=== PATIENT | female | born 1985 | race Caucasian/White ===

== ENCOUNTER → 2023-07-13 08:46 | Outpatient (CLI) | payer OTHER, SELFPAY ==
[2023-07-13 10:01] LABS: Add Manual Diff / Slide Review NO; Basophils Absolute Auto 0 /uL (0-100); Basophils Percent Auto 0.5 % (0-2); Eosinophils Absolute Auto 200 /uL (0-450); Hematocrit 39.8 % (36-46); Hemoglobin 13.4 g/dL (12.0-16.0); Lymphocytes Absolute Auto 1600 /uL (1100-4500); Lymphocytes Percent Auto 18.3 % (25-40); Mean Corpuscular HGB Conc 33.8 % (30-36); Mean Corpuscular Hemoglobin 28.6 PG (26-34); Mean Corpuscular Volume 84.7 fL (80-100); Monocytes Absolute Auto 600 /uL (0-900); Monocytes Percent Auto 6.4 % (3-14); Neutrophils Absolute Auto 6400 /uL (1500-7000); Neutrophils Percent Auto 72.8 % (50-75); Platelet Count 250 X10^3/uL (150-400); Red Cell Distribution Width 13.5 % (11.6-14.8); White Blood Cell Count 8.8 X10^3/uL (4.5-11.0)
[2023-07-13 10:13] LABS: Hemoglobin A1C% w Est Avg Glu 5.2 % (4.0-6.0)
[2023-07-13 10:41] LABS: Alanine Aminotransferase 15 IU/L (<35); Albumin 4.6 g/dL (3.5-5.0); Albumin Globulin Ratio 1.7 (1.0-2.8); Alkaline Phosphatase 70 U/L (38-126); Aspartate Aminotransferase 22 IU/L (14-36); BUN Creatinine Ratio 24.6 (6-22); Bilirubin Total 0.7 mg/dL (0.2-1.3); Blood Urea Nitrogen 16 mg/dL (7-17); Calcium 9.1 mg/dL (8.4-10.2); Carbon Dioxide 26 mmol/L (22-32); Chloride 106 mmol/L (98-107); Cholesterol 153 mg/dL (140-199); Estimated Glomerular Filt Rate > 60 mL/min (>60); Globulin 2.7 g/dL (1.7-4.1); Glucose 92 mg/dL (70-100); HDL Cholesterol 44 mg/dL (40-60); HEMOLYSIS 19 (0-50); LDL Cholesterol Calculated 84 mg/dL (<100); Potassium 4.2 mmol/L (3.4-5.1); Sodium 139 mmol/L (137-145); Total Protein 7.3 g/dL (6.3-8.2); Triglycerides 124 mg/dL (35-150)
[2023-07-13 10:45] LABS: TSH w/ Reflex to FT4 1.91 uIU/mL (0.47-4.68)
[2023-07-13 10:54] LABS: Vitamin D 25 Hydroxy (D3) 28.1 ng/mL (30.0-100.0)
== END ==
PROVIDERS: PCP Family Medicine; Referring Provider Family Medicine; Visit Provider Family Medicine
DX: R73.01 Impaired fasting glucose (principal); F41.1 Generalized anxiety disorder; R42 Dizziness and giddiness; E55.9 Vitamin D deficiency, unspecified
CPT/HCPCS: 36415; 80053; 80061; 82306; 83036; 84443; 85025

== ENCOUNTER → 2023-07-23 09:33 | Outpatient (CLI) | payer OTHER, SELFPAY | PROVIDERS: PCP Family Medicine; Referring Provider Family Medicine; Visit Provider Family Medicine | DX: R00.2 Palpitations (principal) | CPT/HCPCS: 93246 ==

== ENCOUNTER → 2023-08-17 08:52 | Outpatient (CLI) | payer OTHER, SELFPAY ==
[2023-08-17 10:53] LABS: Follicle Stimulating Hormone 5.96 mIU/mL
[2023-08-17 11:08] LABS: Estradiol, Total 45.2 pg/mL
== END ==
LOC: LAB 08:52
PROVIDERS: PCP Family Medicine; Referring Provider Student in an Organized Health Care Education/Training Program; Visit Provider Student in an Organized Health Care Education/Training Program
DX: N97.9 Female infertility, unspecified (principal)
CPT/HCPCS: 36415; 82397; 82670; 83001

== ENCOUNTER → 2023-08-20 07:16 | Outpatient (CLI) | payer OTHER, SELFPAY ==
--- NOTE | 2023-08-20 07:17 | DI.US.S_ITS ---
PROCEDURE: US PELVIC COMPLETE INDICATIONS: evaluate uterine anatomy TECHNIQUE: Real-time scanning was performed of the pelvic organs, with image documentation. Additional endovaginal scanning was necessary due to incomplete visualization of the adnexal and endometrial structures by transabdominal scanning. COMPARISON: Outside Facility, RG, US PELVIC, 08/21/2020, 11:12. FINDINGS: Uterus: 7.7 x 6.1 x 3.9 cm. Anteverted positioning. Overall homogeneous echotexture. There is a focal area of endometrial thickening measuring 1.1 x 0.7 cm. Other parts of the endometrium are nonthickened. Right anterior intramural fibroid measures 1.7 x 1.6 cm. Left anterior intramural intramural fibroid measures 1.6 x 1.3 cm. Ovaries: Nonenlarged bilaterally. Left dominant follicle is present. Right ovary measures 10 cc. Left ovary measures 5 cc. Other: No pathologic free fluid. IMPRESSION: Fibroid uterus as described above, mostly intramural by ultrasound evaluation. Focal endometrial thickening measuring up to 1.1 cm, either hyperplasia or a small polyp. The above findings could be further evaluated with MRI and possible direct visualization if necessary. Dictated by: Cole Daniels M.D. on 08/20/2023 at 13:59 Approved by: Cole Daniels M.D. on 08/20/2023 at 14:03
== END ==
LOC: US 07:17
PROVIDERS: PCP Family Medicine; Referring Provider Student in an Organized Health Care Education/Training Program; Visit Provider Student in an Organized Health Care Education/Training Program
DX: N97.9 Female infertility, unspecified (principal); D25.1 Intramural leiomyoma of uterus; R93.89 Abnormal findings on diagnostic imaging of other specified body structures
CPT/HCPCS: 76830; 76856

== ENCOUNTER → 2023-12-19 08:23 | Outpatient (CLI) | payer OTHER, SELFPAY ==
[2023-12-19 09:01] LABS: Appearance Urine UA CLEAR; Bilirubin Urine UA NEGATIVE (NEGATIVE); Color Urine UA YELLOW; Glucose Urine UA NEGATIVE (Negative); Ketones Urine UA NEGATIVE (NEGATIVE); Leukocyte Esterase Urine UA 2+ (NEGATIVE); Nitrite Urine UA NEGATIVE (Negative); Occult Blood Urine UA 2+ (Negative); Protein Urine UA NEGATIVE (Negative); Urobilinogen Urine UA 0.2 E.U./dL (0.2)
[2023-12-19 09:13] LABS: Bacteria Urine Many (>30); Culture Indicated Urine Specimen Cultured; RBC Urine 1-5/HPF (0-5/HPF); Squamous Epithelial Cell Urine 0-1 /HPF (0-5/HPF); Urine Volume 10mL (spun); WBC Urine 5-10/HPF (0-5/HPF)
== END ==
PROVIDERS: PCP Family Medicine; Referring Provider Student in an Organized Health Care Education/Training Program; Visit Provider Student in an Organized Health Care Education/Training Program
DX: R30.0 Dysuria (principal)
CPT/HCPCS: 81001; 87077; 87086; 87186

== ENCOUNTER → 2024-01-04 09:30 | Outpatient (CLI) | payer OTHER, SELFPAY ==
[2024-01-04 13:14] LABS: Appearance Urine UA CLEAR; Bilirubin Urine UA NEGATIVE (NEGATIVE); Color Urine UA YELLOW; Glucose Urine UA NEGATIVE (Negative); Ketones Urine UA NEGATIVE (NEGATIVE); Leukocyte Esterase Urine UA NEGATIVE (NEGATIVE); Nitrite Urine UA NEGATIVE (Negative); Occult Blood Urine UA 2+ (Negative); Protein Urine UA NEGATIVE (Negative); Urobilinogen Urine UA 0.2 E.U./dL (0.2)
[2024-01-04 13:20] LABS: Bacteria Urine None Seen; Culture Indicated Urine Cult Not Indicated; RBC Urine 5-10/HPF (0-5/HPF); Squamous Epithelial Cell Urine 1-5 /HPF (0-5/HPF); Urine Volume 10mL (spun); WBC Urine None Seen (0-5/HPF)
== END ==
PROVIDERS: PCP Family Medicine; Referring Provider Student in an Organized Health Care Education/Training Program; Visit Provider Student in an Organized Health Care Education/Training Program
DX: R30.0 Dysuria (principal)
CPT/HCPCS: 81001

== ENCOUNTER → 2024-01-18 16:19 | Outpatient (CLI) | payer OTHER, SELFPAY ==
[2024-01-18 16:51] LABS: Add Manual Diff / Slide Review NO; Basophils Absolute Auto 100 /uL (0-100); Basophils Percent Auto 0.9 % (0-2); Eosinophils Absolute Auto 400 /uL (0-450); Eosinophils Percent Auto 4.2 % (2-4); Hematocrit 40.4 % (36-46); Hemoglobin 13.5 g/dL (12.0-16.0); Lymphocytes Absolute Auto 2000 /uL (1100-4500); Lymphocytes Percent Auto 20.7 % (25-40); Mean Corpuscular HGB Conc 33.5 % (30-36); Mean Corpuscular Hemoglobin 28.9 PG (26-34); Mean Corpuscular Volume 86.2 fL (80-100); Monocytes Absolute Auto 700 /uL (0-900); Monocytes Percent Auto 7.5 % (3-14); Neutrophils Absolute Auto 6300 /uL (1500-7000); Neutrophils Percent Auto 66.7 % (50-75); Platelet Count 239 X10^3/uL (150-400); Red Blood Cell Count 4.68 X10^6/uL (4.0-5.2); Red Cell Distribution Width 13.7 % (11.6-14.8); White Blood Cell Count 9.5 X10^3/uL (4.5-11.0)
[2024-01-18 17:10] LABS: Alanine Aminotransferase 18 IU/L (<35); Albumin 4.4 g/dL (3.5-5.0); Albumin Globulin Ratio 1.6 (1.0-2.8); Alkaline Phosphatase 72 U/L (38-126); Aspartate Aminotransferase 27 IU/L (14-36); Bilirubin Total 0.4 mg/dL (0.2-1.3); Blood Urea Nitrogen 19 mg/dL (7-17); Calcium 8.9 mg/dL (8.4-10.2); Carbon Dioxide 26 mmol/L (22-32); Chloride 106 mmol/L (98-107); Cholesterol 150 mg/dL (140-199); Estimated Glomerular Filt Rate > 60 mL/min (>60); Globulin 2.8 g/dL (1.7-4.1); Glucose 80 mg/dL (70-100); HDL Cholesterol 43 mg/dL (40-60); HEMOLYSIS < 15 (0-50); LDL Cholesterol Calculated 80 mg/dL (<100); Lipase 78 U/L (23-300); Potassium 3.7 mmol/L (3.4-5.1); Sodium 139 mmol/L (137-145); Total Protein 7.2 g/dL (6.3-8.2); Triglycerides 137 mg/dL (35-150)
[2024-01-18 17:25] LABS: Vitamin D 25 Hydroxy (D3) 17.4 ng/mL (30.0-100.0)
== END ==
LOC: LAB 16:20
PROVIDERS: PCP Family Medicine; Referring Provider Family Medicine; Visit Provider Family Medicine
DX: E55.9 Vitamin D deficiency, unspecified (principal); R10.13 Epigastric pain; E66.9 Obesity, unspecified
CPT/HCPCS: 36415; 80053; 80061; 82306; 83690; 85025

== ENCOUNTER 2024-02-29 15:38 | Emergency (ER) | payer OTHER, SELFPAY ==
[2024-02-29 15:40] VITALS: BP 138/69; PULSE 88; RESP 18; TEMP 36.6; O2SAT 96; BMI 33.8
[2024-02-29] MEDS: TET,DIPH,PERTUSS(ACELL),VAC/PF 0.5 ML SYRINGE IM (18:06)
[2024-02-29 18:35] VITALS: BP 135/65; PULSE 82; RESP 18; O2SAT 99
--- NOTE | 2024-03-01 12:06 | ED.WOUNDLAC ---
HPI - Wound/Laceration <Jennifer Tai PA-C - Last Filed: 03/01/24 12:16> General Chief Complaint: Wound/Laceration Stated Complaint: finger laceration Time Seen by Provider: 02/29/24 17:58 Source: patient Mode of arrival: Ambulatory History of Present Illness HPI narrative: 38-year-old female presents to the ED status post a finger injury to the right hand sustained earlier today. Patient accidentally injured her pinky and ring fingers of the right hand when using a Exepronoline slicer to slice cucumbers. Bleeding is controlled with pressure. Tetanus is not up-to-date. No numbness, tingling, weakness. Patient endorses full range of motion. Patient is not on blood thinners. Related Data Previous Rx's Medication Instructions Recorded valacyclovir 1 gram tablet 1,000 mg PO DAILY 5 days #5 tabs 09/04/23 (Valtrex) pantoprazole 40 mg tablet,delayed 40 mg PO DAILY #30 tabs 01/18/24 release cholecalciferol (vitamin D3) 1,250 1,250 mcg PO QWEEK Vit D def 2 01/24/24 mcg (50,000 unit) capsule months #9 caps Allergies Allergy/AdvReac Type Severity Reaction Status Date / Time No Known Drug Allergies Allergy Unverified 01/18/24 15:41 Review of Systems <Jennifer Tai PA-C - Last Filed: 03/01/24 12:16> Constitutional Constitutional: Denies chills, Denies fatigue, Denies fever(s), Denies frequent falls, Denies lethargy and Denies weakness Eyes Eyes: Denies change in vision, Denies eye discharge, Denies irritation and Denies loss of vision ENT Ears, Nose, Mouth, and Throat: Denies change in voice, Denies dizziness, Denies neck pain, Denies sore throat and Denies throat swelling Cardiovascular Cardiovascular: Denies chest pain, Denies irregular heart rhythm, Denies lightheadedness, Denies palpitations, Denies dyspnea, Denies dyspnea on exertion and Denies orthopnea Respiratory Respiratory: Denies cough, Denies dyspnea, Denies dyspnea on exertion and Denies wheezing Gastrointestinal Gastrointestinal: Denies abdominal pain, Denies change in bowel habits, Denies diarrhea, Denies nausea and Denies vomiting Musculoskeletal Musculoskeletal: Denies neck pain and Denies numbness Integumentary/Breasts Skin/Breast: Denies pruritus, Denies erythema, Denies rash and Denies wounds Comments: Lacerations to tips of ring and pinky fingers of the right hand. Neurologic Neurologic: Denies behavioral changes, Denies confusion, Denies dizziness, Denies frequent falls, Denies loss of vision, Denies numbness and Denies weakness Psychiatric Psychiatric: Denies anxiety, Denies behavioral changes, Denies confusion, Denies depression, Denies homicidal ideation and Denies suicidal ideation Endocrine Endocrine: Denies fatigue, Denies flushing and Denies palpitations Hematologic/Lymphatic Hematologic/Lymphatic: Denies easy bruising Allergic/Immunologic Allergic/Immunologic: Denies urticaria, Denies throat swelling and Denies wheezing Patient History <Jennifer Tai PA-C - Last Filed: 03/01/24 12:16> Medical History Heavy menstrual period Endometriosis (~2019) Prediabetes Sleep apnea (~2021) Depression Anxiety Obesity (BMI 30.0-34.9) History of chlamydia infection HSV-1 (herpes simplex virus 1) infection Infertility Vitamin D deficiency Vertigo (~2019) MORIAH (generalized anxiety disorder) Impaired fasting glucose Surgical History Anesthesia History of appendectomy (~2015) Family History Father Diabetes mellitus COPD (chronic obstructive pulmonary disease) History of cholecystectomy Mother Thyroid disorder Grandmother Vertigo Cellulitis Social History Smoking Status: Never smoker alcohol intake: current (Occasional) substance use type: does not use Smoking Status: Never smoker Alcohol type: wine Exam <Jennifer Tai PA-C - Last Filed: 03/01/24 12:16> Narrative Exam Narrative: Const General:?cooperative, healthy appearing and comfortable [facility] Head:?normal to inspection Ears:?hearing grossly normal bilaterally Nose:?external nose normal Face and sinus:?normal facial exam and sinuses nontender Mouth:?oral mucosae normal Throat:?posterior oropharynx normal Eyes General:?appearance normal, both eyes and all related structures Neck Neck:?normal visual inspection and no lymphadenopathy noted Resp Effort & Inspection:?normal respiratory effort Auscultation:?clear to auscultation bilaterally Cardio Rate:?regular rate Rhythm:?regular rhythm Integumentary There are 2 avulsion injuries to the tips of the pinky and ring finger of the right hand. Bleeding is controlled with pressure. Strength and sensation is intact. There is full range of motion. Patient is neurovascularly intact. No internal structures visualized on exam. Nails are intact. Neuro General:?patient alert, patient awake and patient oriented x3 Initial Vital Signs Initial Vital Signs: Vital Signs Temperature 97.8 F 02/29/24 15:40 Pulse Rate 88 02/29/24 15:40 Respiratory Rate 18 02/29/24 15:40 Blood Pressure 138/69 02/29/24 15:40 Pulse Oximetry 96 02/29/24 15:40 Oxygen Delivery Method Room Air 02/29/24 15:40 <Iris Dillon DO - Last Filed: 03/04/24 09:35> Initial Vital Signs Initial Vital Signs: Vital Signs Temperature 97.8 F 02/29/24 15:40 Pulse Rate 88 02/29/24 15:40 Respiratory Rate 18 02/29/24 15:40 Blood Pressure 138/69 02/29/24 15:40 Pulse Oximetry 96 02/29/24 15:40 Oxygen Delivery Method Room Air 02/29/24 15:40 Course <Jennifer Tai PA-C - Last Filed: 03/01/24 12:16> Orders Ordered: Discontinued Medications Diphtheria/Tetanus/Acell Pertussis (Tet,Diph,Pertuss(Acell),Vac/Pf 0.5 Ml Syringe) 0.5 ml IM .ONCE ONE Stop: 02/29/24 17:59 Last Admin: 02/29/24 18:06 Dose: 0.5 ml Documented By: RUI <Iris Dillon DO - Last Filed: 03/04/24 09:35> Orders Ordered: Discontinued Medications Diphtheria/Tetanus/Acell Pertussis (Tet,Diph,Pertuss(Acell),Vac/Pf 0.5 Ml Syringe) 0.5 ml IM .ONCE ONE Stop: 02/29/24 17:59 Last Admin: 02/29/24 18:06 Dose: 0.5 ml Documented By: RUI MDM - Wound/Laceration <Jennifer Tai PA-C - Last Filed: 03/01/24 12:16> [facility] Narrative Medical decision making narrative: 38-year-old female presents to the ED status post a finger injury to the right hand sustained earlier today. On exam, there are 2 avulsion injuries, 1 to the tip of the right ring finger and the other to the tip of the right pinky finger. Bleeding has been controlled with pressure. No deeper structures are visualized on exam. No concern for fractures or foreign bodies. No indication for imaging at this time. Surgicel was applied and fingers were bandaged. Tetanus was updated. Signs of infection, wound care discussed with patient. ED return precautions were discussed with patient. Patient verbalized understanding. Medical records reviewed: Yes Discharge Plan Departure Patient Disposition: Home Clinical Impression: Avulsion of skin Instructions: DI for Minor Laceration Activity Restrictions/Additional Instructions: You were evaluated in the ED today for a finger injury. Your injuries have been treated with Surgicel to kettle room helper the clotting and healing process. Please keep the injuries clean and dry for the 1st 24 hours. The Surgicel does not need to be removed. You may take Tylenol, ibuprofen for pain. Your tetanus has been updated today. As with all injuries, there is a chance of infection. Please watch for signs of infection which include worsening redness, pain, swelling, discharge, warmth. Return to the ED if you note any signs of infection. Prescriptions: No Action valacyclovir [Valtrex] 1 gram tablet 1,000 mg PO DAILY 5 Days Qty: 5 3RF cholecalciferol (vitamin D3) 1,250 mcg (50,000 unit) capsule 1,250 mcg PO QWEEK 60 Days Qty: 9 0RF pantoprazole 40 mg tablet,delayed release (DR/EC) 40 mg PO DAILY Qty: 30 3RF Referrals: Sarah Diallo DO [Primary Care Provider] - Stand Alone Forms: Patient Portal/API/Survey ED Sign-out <Iris Dillon DO - Last Filed: 03/04/24 09:35> Cosign ED Attending Coskaylinature Attestation: I was available for consultation.
== END 2024-02-29 18:43 | disposition home or self-care (01) ==
PROVIDERS: Emergency Provider Student in an Organized Health Care Education/Training Program; PCP Family Medicine
DX: S61.216A Laceration without foreign body of right little finger without damage to nail, initial encounter (principal); S61.214A Laceration without foreign body of right ring finger without damage to nail, initial encounter; W26.8XXA Contact with other sharp object(s), not elsewhere classified, initial encounter; Z23 Encounter for immunization
CPT/HCPCS: 90471; 99283; 90715

== ENCOUNTER → 2024-06-11 09:17 | Outpatient (CLI) | payer OTHER, SELFPAY | LOC: LAB 09:18 | PROVIDERS: PCP Family Medicine; Visit Provider Chiropractor | DX: R30.0 Dysuria (principal) | CPT/HCPCS: 87086 ==

== ENCOUNTER → 2024-07-08 15:28 | Outpatient (CLI) | payer OTHER, SELFPAY ==
[2024-07-09 13:39] LABS: Candida species Negative (Negative); Gardnerella vaginalis Negative (Negative); Trichomoas vaginalis Negative (Negative)
== END ==
PROVIDERS: PCP Family Medicine; Visit Provider Student in an Organized Health Care Education/Training Program
DX: N89.8 Other specified noninflammatory disorders of vagina (principal); N97.9 Female infertility, unspecified
CPT/HCPCS: 87480; 87510; 87660

== ENCOUNTER → 2024-07-08 15:45 | Outpatient (CLI) | payer OTHER, SELFPAY | PROVIDERS: PCP Family Medicine; Referring Provider Student in an Organized Health Care Education/Training Program; Visit Provider Student in an Organized Health Care Education/Training Program | DX: N97.9 Female infertility, unspecified (principal); N89.8 Other specified noninflammatory disorders of vagina | CPT/HCPCS: 36415; 84144; 87480; 87510; 87660 ==

== ENCOUNTER → 2024-10-24 14:52 | Outpatient (CLI) | payer OTHER, SELFPAY ==
[2024-10-24 15:29] LABS: Appearance Urine UA CLEAR; Bilirubin Urine UA NEGATIVE (NEGATIVE); Color Urine UA YELLOW; Glucose Urine UA NEGATIVE (Negative); Ketones Urine UA NEGATIVE (NEGATIVE); Leukocyte Esterase Urine UA NEGATIVE (NEGATIVE); Nitrite Urine UA NEGATIVE (Negative); Occult Blood Urine UA 1+ (Negative); Protein Urine UA NEGATIVE (Negative); Specific Gravity Urine UA <=1.005 (1.000-1.035); Urobilinogen Urine UA 0.2 E.U./dL (0.2)
[2024-10-24 15:31] LABS: pH Urine UA 6.0 (4.5-8.0)
[2024-10-24 15:36] LABS: Culture Indicated Urine Cult Not Indicated
[2024-10-24 16:23] LABS: Ferritin 17 ng/mL (6-137)
== END ==
PROVIDERS: PCP Family Medicine; Referring Provider Family Medicine; Visit Provider Family Medicine
DX: N30.01 Acute cystitis with hematuria (principal); Z00.00 Encounter for general adult medical examination without abnormal findings; E66.9 Obesity, unspecified
CPT/HCPCS: 36415; 81001; 82728